=== PATIENT | female | born 1990 | race Caucasian/White ===

== ENCOUNTER 2018-03-08 14:00 | Emergency (ER) | payer OTHER ==
[2018-03-08 14:32] VITALS: BP 112/70; PULSE 68; RESP 18; TEMP 97.8
--- NOTE | 2018-03-08 15:03 | ED ---
Head Injury HPI - General Chief complaint: Head Injury Stated complaint: Hit in face with basketball-[facility] Time Seen by Provider: 03/08/18 14:27 Source: patient Mode of arrival: ambulatory Limitations: no limitations - History of Present Illness Initial comments: This is a pleasant, well appearing 27-year-old female with no past medical history presents today for chief complaint of head injury. 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 Patient denies loss of consciousness, fall, extremity injury, ocular injury/pain, visual changes, diplopia, nausea or vomiting. Patient states she was in was worried denies any gait/ speech or memory changes. She did have dull aching headache, she states it is mild however she was told by her boss that she must come in for evaluation. Upon arrival pt appears well, no signs of focal deficits. VS within acceptable limits. Remainder of ROS (-) patient denies any recent fever, chills , shortness of breath, chest pain, back pain, abdominal pain, nausea or vomiting , numbness or tingling, dysuria or hematuria, constipation or diarrhea, or visual changes, or any other complaints. - Related Data Home Medications Medication Instructions Recorded Confirmed No Known Home Medications 05/10/14 05/23/14 Allergies/Adverse reactions: Allergies Allergy/AdvReac Type Severity Reaction Status Date / Time amoxicillin AdvReac Unknown Verified 05/23/14 11:22 Childhood Review of Systems ROS Statement: Those systems with pertinent positive or pertinent negative responses have been documented in the HPI. ROS Other: All systems not noted in ROS Statement are negative. Constitutional: Denies: fever, chills, night sweats ENT: Denies: ear pain, throat pain Respiratory: Denies: as per HPI, cough, dyspnea, wheezes, hemoptysis, stridor Cardiovascular: Denies: chest pain, palpitations Endocrine: Denies: fatigue Gastrointestinal: Denies: abdominal pain, nausea, vomiting, diarrhea, constipation, hematemesis, melena Genitourinary: Denies: urgency, dysuria Musculoskeletal: Denies: back pain Skin: Denies: rash, lesions Neurological: Reports: headache. Denies: weakness, numbness, paresthesias, confusion, abnormal gait, vertigo Past Medical History Past Medical History: No Reported History Additional Past Medical History / Comment(s): FALL 05/10/14, NASAL FX History of Any Multi-Drug Resistant Organisms: None Reported Additional Past Surgical History / Comment(s): TUBES IN EARS, WISDOM TEETH Past Anesthesia/Blood Transfusion Reactions: No Reported Reaction Past Psychological History: No Psychological Hx Reported Smoking Status: Never smoker Past Alcohol Use History: Occasional Past Drug Use History: None Reported General Exam - General Exam Comments Initial Comments: General: The patient is awake and alert, in no distress, and does not appear acutely ill. Eye: Pupils are equal, round and reactive to light, extra-ocular movements are intact. No nystagmus. There is normal conjunctiva bilaterally. No signs of icterus. Tympanic membranes within normal limits, no blood in the EAC. No raccoon or Dixon sign. No palpable defect of the orbits, no swelling of the soft tissues of the face. Ears, nose, mouth and throat: There are moist mucous membranes and no oral lesions. Oropharynx nonerythematous. Neck: The neck is supple, there is no tenderness or JVD. No anterior cervical adenopathy, no pain to palpation of the cervical spine. Cardiovascular: There is a regular rate and rhythm. No murmur, rub or gallop is appreciated. Respiratory: Lungs are clear to auscultation, respirations are non-labored, breath sounds are equal. No wheezes, stridor, rales, or rhonchi. Musculoskeletal: Normal ROM, no tenderness. Strength 5/5. Sensation intact. Pulses equal bilaterally 2+. Neurological: A&O x 3. CN II-XII intact, memory intact to immediately, intermediate and longterm recall. Able to follow simple verbal. Able to name a common object (pen). High quality, labial (pa) and lingual (la) speech. Low quality posterior pharynx/larynx (ga) voice sounds. Able to express general knowledge (days in a week). No hemineglect or inattention noted. Finger agnosia (-) and spatially oriented. Light touch sensation present over the face , chest, abdomen, back, UE bilaterally, and LE bilaterally. Able to localize point during point localization b/l and extinction. No visible bulk atrophy, hypertrophy, fasciculations, or myoclonus of the UE or LE b/l. Full PROM in UE and LE b/l. Bilateral muscle strength 5/5 for the following muscles: deltoid, biceps, triceps, brachioradialis, wrist extensors/flexor, hip flexor, hip abductors/adductors, hamstrings, quadriceps, feet dorsiflexors/plantar flexors. Heel to [place] coordinated and accurate b/l. Coordinated and even demonstration of hand flip, finger to thumb, and toe tap b/l. Gait is coordinated and even in stride with tandem, toe and heel walk. Maintains balance with monopedal stance. (-) Romberg. (-) pronator drift. No nuchal rigidity. Skin: Skin is warm and dry and no rashes or lesions are noted. Psychiatric: Cooperative, appropriate mood & affect, normal judgment. Limitations: no limitations Course Vital Signs 03/08/18 14:25 Temperature 97.8 F Pulse Rate 68 Respiratory 18 Rate Blood Pressure 112/70 O2 Sat by Pulse 99 Oximetry Medical Decision Making - Medical Decision Making Patient admits to a headache, she states she took 2, 500 mg Tylenol tablets prior to arrival. Patient denies any focal neurological symptoms. There is no focal neurological deficits on exam. Patient states that she was told to come for examination, she states she is ready for discharge. Patient denies any additional medication for her headache. At this time do feel patient is stable for discharge with primary care follow-up. At this time I do not feel pt is concussed however, i recommended refraining from contact sports for 1 week and until symptoms free with primary care f/u in 1-2 days. Pt verbalized understanding of plan. Discussed case with Dr. Topete who agreed with impression and plan. Return parameters discussed at length patient who verbalized understanding. Patient discharged in stable condition. Disposition Clinical Impression: Head injury Disposition: HOME SELF-CARE Condition: Good Instructions: Concussion (ED) Additional Instructions: Please use over the counter medications as discussed. Please follow-up with family doctor in the next 2 days.. No contact sports 1 week and until symptom free. Please obtain clearance from primary provider. Please return to emergency room if the symptoms increase or worsen or for any other concerns. Is patient prescribed a controlled substance at d/c from ED?: No Referrals: Rajendra Givens MD [Primary Care Provider] - 1-2 days Time of Disposition: 15:06
== END 2018-03-08 15:34 | disposition home or self-care (01) ==
LOC: EC 14:00
DX: S09.90XA Unspecified injury of head, initial encounter (principal); Z87.828 Personal history of other (healed) physical injury and trauma; Z96.22 Myringotomy tube(s) status; Z88.0 Allergy status to penicillin; W21.05XA Struck by basketball, initial encounter; Y92.69 Other specified industrial and construction area as the place of occurrence of the external cause; Y99.0 Civilian activity done for income or pay
CPT/HCPCS: 99283